=== PATIENT | male | born 1970 | race Caucasian/White ===

== ENCOUNTER 2018-06-05 10:42 | Emergency (ER) | payer OTHER ==
[2018-06-05 10:50] VITALS: BMI 33.7
[2018-06-05 10:53] VITALS: TEMP 98
[2018-06-05] MEDS ORDERED: Lidocaine 5% Patch TD STA (11:14)
--- NOTE | 2018-06-05 11:26 | ED PDOC ---
Arrival/HPI - General Chief Complaint: Hip Pain Time Seen by Provider: 06/05/18 10:56 Historian: Patient - History of Present Illness Narrative History of Present Illness (Text): 06/05/18 11:14 48 year old male, with no significant past medical history, presents to the Emergency department complaining of left buttocks pain radiating to his left leg since 1 week. Patient informs lifting something heavy a week ago but denies any immediate discomfort or pain to the area. As per patient, pain progressively worsened over time, prompting him to present to the ED for medical evaluation. Patient informs exacerbation of symptoms with ambulation but denies any numbness/tingling to the extremities. Patient states similar symptoms 7 years ago to the right side but denies any trauma or injury at the time. Patient denies any other associated medical complaints. Patient denies any fevers, chills, headache, dizziness, chest pain, shortness of breath, abdominal pain, nausea, vomiting, back pain, urinary symptoms, neck pain, or any other complaints. PMD: NONE Time/Duration: 1 week Symptom Onset: Gradual Symptom Course: Worsening Quality: Aching Activities at Onset: Light Context: Home Past Medical History - Provider Review Nursing Documentation Reviewed: Yes - Infectious Disease Hx of Infectious Diseases: None Family/Social History - Physician Review Nursing Documentation Reviewed: Yes Family/Social History: Unknown Family HX Allergies/Home Meds Allergies/Adverse Reactions: Allergies No Known Allergies Allergy (Unverified 06/05/18 11:13) Review of Systems - Physician Review All systems were reviewed & negative as marked: Yes - Review of Systems Constitutional: absent: Fevers Respiratory: absent: SOB, Cough Cardiovascular: absent: Chest Pain Gastrointestinal: absent: Abdominal Pain, Diarrhea, Nausea, Vomiting Genitourinary Male: absent: Dysuria, Urinary Output Changes Musculoskeletal: Other (Left buttocks pain). absent: Back Pain, Neck Pain Skin: absent: Rash Neurological: absent: Headache, Dizziness, Focal Weakness Physical Exam Vital Signs Reviewed: Yes Vital Signs Temp Pulse Resp BP Pulse Ox 06/05/18 11:13 98.0 F 80 18 128/84 99 06/05/18 10:50 98.0 F 80 20 128/84 99 Temperature: Afebrile Blood Pressure: Normal Pulse: Regular Respiratory Rate: Normal Appearance: Positive for: Well-Appearing, Non-Toxic, Comfortable Pain Distress: None Mental Status: Positive for: Alert and Oriented X 3 - Systems Exam Head: Present: Atraumatic, Normocephalic Pupils: Present: PERRL Extroacular Muscles: Present: EOMI Conjunctiva: Present: Normal Neck: Present: Normal Range of Motion Respiratory/Chest: Present: Clear to Auscultation, Good Air Exchange. No: Respiratory Distress, Accessory Muscle Use Cardiovascular: Present: Regular Rate and Rhythm, Normal S1, S2. No: Murmurs Abdomen: No: Tenderness, Distention, Peritoneal Signs Back: Present: Normal Inspection. No: CVA Tenderness, Midline Tenderness, Paraspinal Tenderness Upper Extremity: Present: Normal Inspection. No: Cyanosis, Edema Lower Extremity: Present: Tenderness (tenderness to sacral buttocks area on left), Neurovascularly Intact, Other (Positive straight left leg test ). No: Edema Neurological: Present: GCS=15, CN II-XII Intact, Speech Normal Skin: Present: Warm, Dry, Normal Color. No: Rashes Psychiatric: Present: Alert, Oriented x 3, Normal Insight, Normal Concentration Medical Decision Making ED Course and Treatment: 06/05/18 11:14 Impression: 48 year old male presents to the Emergency department complaining of left buttocks pain. Differential Diagnosis included but are not limited to: Sciatica Plan: -- Flexeril -- Toradol -- Lidoderm -- Reassess and disposition Prior Visits: Notes and results from previous visits were reviewed. Progress Notes: Patient feels much better and his pain has improved. He is able to walk without ataxia. He will tack medications as prescribed and make sure to follow up with his primary care doctor in 1-2days. - Medication Orders Current Medication Orders: Discontinued Medications Cyclobenzaprine HCl (Flexeril) 10 mg PO STAT STA Stop: 06/05/18 11:15 Ketorolac Tromethamine (Toradol) 60 mg IM STAT STA Stop: 06/05/18 11:15 Lidocaine (Lidoderm) 1 ea TD STAT STA Stop: 06/05/18 11:15 - Scribe Statement The provider has reviewed the documentation as recorded by the Scribe Ban Hollingsworth. All medical record entries made by the Scribe were at my direction and personall y dictated by me. I have reviewed the chart and agree that the record accurately reflects my personal performance of the history, physical exam, medical decision making, and the department course for this patient. I have also personally directed, reviewed, and agree with the discharge instructions and disposition. Disposition/Present on Arrival - Present on Arrival Any Indicators Present on Arrival: No History of DVT/PE: No History of Uncontrolled Diabetes: No Urinary Catheter: No History of Decub. Ulcer: No History Surgical Site Infection Following: None - Disposition Have Diagnosis and Disposition been Completed?: Yes Diagnosis: Sciatica Disposition: HOME/ ROUTINE Disposition Time: 13:20 Patient Plan: Discharge Condition: IMPROVED Discharge Instructions (ExitCare): Sciatica (DC) Additional Instructions: [facility], thank you for letting us take care of you today. Your provider was Lars Olson DO and you were treated for Sciatica. The emergency medical care you received today was directed at your acute symptoms. If you were prescribed any medication, please fill it and take as directed. It may take several days for your symptoms to resolve. Return to the Emergency Department if your symptoms worsen, do not improve, or if you have any other problems. Please contact your doctor or call one of the physicians/clinics you have been referred to that are listed on the Patient Visit Information form that is included in your discharge packet. Bring any paperwork you were given at discharge with you along with any medications you are taking to your follow up visit. Our treatment cannot replace ongoing medical care by a primary care provider outside of the emergency department. Thank you for allowing the [facility] team to be part of your care today. If you had an X-Ray or CT scan: A Radiologist will review the ED reading if any change in treatment is needed we will contact you. If you had a blood, urine, or wound culture: It will take several days for the results, if any change in treatment is needed we will contact you. If you had an STI test: It will take 48 hours for the results. Please call after 1 week if you have not heard back. Prescriptions: Cyclobenzaprine [Flexeril] 5 mg PO TID PRN #20 tab PRN Reason: Muscle Spasm Ibuprofen [Motrin] 600 mg PO Q6 PRN #30 tab PRN Reason: Pain, Moderate (4-7) Lidocaine 5% [Lidoderm] 1 ea TD DAILY PRN #4 patch PRN Reason: Pain, Moderate (4-7) Referrals: [facility] [Outside] - Follow up with primary Luz Gonzales MD [Medical Doctor] - Follow up with primary Forms: [employer] (T[place]anian), WORK NOTE
[2018-06-05 13:21] VITALS: BP 120/79; PULSE 62; RESP 19; O2SAT 99
== END 2018-06-05 13:20 | disposition home or self-care (01) ==
LOC: ED 10:42
DX: M54.30 Sciatica, unspecified side (principal)
CPT/HCPCS: 96372; 99284; J1885